=== PATIENT | female | born 1935 | race Caucasian/White ===

== ENCOUNTER 2018-05-08 09:31 | Emergency (ER) | payer BC, MEDICARE ==
[~2018-05-08] VITALS: Ht 152.4 cm; Wt 65.8 kg
[2018-05-08] MEDS ORDERED: SYNTHROID88 MCG PO (09:52)
[2018-05-08] MEDS ORDERED: DILTIAZEM 24HR300 M3 PO (09:52)
[2018-05-08] MEDS ORDERED: ACCUNEB SO1.25 MG/1 INH (09:53)
[2018-05-08] MEDS ORDERED: ALLEGRA ALLERG180 MG PO (09:53)
[2018-05-08] MEDS ORDERED: ASPIR 8181 MG PO (09:53)
[2018-05-08] MEDS ORDERED: FLONASE 0.05%50 MCG NASAL (09:53)
[2018-05-08] MEDS ORDERED: COLESTID1 GM PO (09:54)
[2018-05-08] MEDS ORDERED: ZYRTEC10 M5 PO (09:54)
[2018-05-08] MEDS ORDERED: NORCO 5-325 TA1 EACH PO (10:11)
[2018-05-08] MEDS ORDERED: FLEXERIL PO (10:11)
[2018-05-08 10:30] VITALS: BP 123/49
== END 2018-05-08 10:30 | disposition home or self-care (01) ==
LOC: M.ERS 09:31
DX: M54.5 Low back pain (principal); I10 Essential (primary) hypertension; J45.909 Unspecified asthma, uncomplicated; E89.0 Postprocedural hypothyroidism; Z91.041 Radiographic dye allergy status; Z88.1 Allergy status to other antibiotic agents; Z88.0 Allergy status to penicillin; Z88.2 Allergy status to sulfonamides; Z88.8 Allergy status to other drugs, medicaments and biological substances

== ENCOUNTER 2018-11-13 06:46 | Emergency (ER) | payer BC, MEDICARE ==
[~2018-11-13] VITALS: Ht 154.9 cm; Wt 50.8 kg
[~2018-11-13 06:46] MED LIST: ACCUNEB SO1.25 MG/1 INH; ALLEGRA ALLERG180 MG PO; ASPIR 8181 MG PO; COLESTID1 GM PO; DILTIAZEM 24HR300 M3 PO; FLEXERIL PO; FLONASE 0.05%50 MCG NASAL; NORCO 5-325 TA1 EACH PO; SYNTHROID88 MCG PO; ZYRTEC10 M5 PO
[2018-11-13] MEDS ORDERED: PEPSIN 3,000 DIG1 GM MC (07:12)
[2018-11-13 07:26] LABS: ABSOLUTE LYMPHOCYTES 1.1 thou/uL (0.8-5.3); ABSOLUTE MONOCYTES 0.3 thou/uL (0.0-1.2); ABSOLUTE NEUTROPHILS 3.5 thou/uL (1.6-8.1); BASOPHILS 0.9 %; EOSINOPHILS 0.5 %; HEMATOCRIT 34.5 % (37.0-47.0); HEMOGLOBIN 11.6 gm/dL (12.0-15.0); LYMPHOCYTES 22.4 %; MCH 29.5 pg (26.0-34.0); MCHC 33.6 g/dL (28.0-37.0); MCV 87.9 fL (80.0-100.0); MONOCYTES 6.4 %; MPV 6.8 fl. (7.2-11.1); NUCLEATED RBCS 0 /100WBC; PLATELET COUNT* 212 thou/uL (150-400); POLYS 69.8 %; RBC 3.92 mil/uL (4.20-5.00); RDW-CV 12.4 % (10.5-14.5)
[2018-11-13 07:45] LABS: APTT 25.3 Seconds (25.0-31.3); PROTIME 10.5 Seconds (9.20-11.50)
[2018-11-13 07:55] LABS: ANION GAP 6 mmol/L (7-16); BUN 15 mg/dL (7-18); CALCIUM 9.6 mg/dL (8.5-10.1); CHLORIDE 105 mmol/L (98-107); CO2 31 mmol/L (21-32); CREATININE 0.8 mg/dL (0.6-1.3); GLUCOSE 99 mg/dL (70-99); POTASSIUM 3.8 mmol/L (3.5-5.1); SODIUM 142 mmol/L (136-145); TROPONIN-I LEVEL <0.06 ng/mL (<0.06)
[2018-11-13 07:57] LABS: ALBUMIN 3.8 g/dL (3.4-5.0); ALKALINE PHOSPHATASE 94 U/L (46-116); NT-PRO BRAIN NAT PEPTIDE 56 pg/mL (<300); SGOT 18 U/L (15-37); SGPT 22 U/L (30-65); TOTAL BILIRUBIN 0.3 mg/dL (<0.1-1.0); TOTAL PROTEIN 7.8 g/dL (6.4-8.2)
[2018-11-13 08:25] LABS: URINE BILIRUBIN NEGATIVE (Negative); URINE BLOOD NEGATIVE (Negative); URINE CLARITY CLEAR; URINE COLOR YELLOW; URINE GLUCOSE-RANDOM NEGATIVE (Negative); URINE KETONES NEGATIVE (Negative); URINE LEUKOCYTES-REFLEX NEGATIVE (Negative); URINE NITRITE-REFLEX NEGATIVE (Negative); URINE PROTEIN NEGATIVE (Negative); URINE SPECIFIC GRAVITY 1.025 (1.005-1.030); URINE UROBILINOGEN 0.2 E.U./dl (0.2-1.0)
[2018-11-13] MEDS ORDERED: HYDROCODONE-AP1 EAC6 PO (08:56)
[2018-11-13 09:17] VITALS: BP 149/53
--- NOTE | 2018-11-13 12:02 | EKG ---
[place] [address] ELECTROCARDIOGRAM REPORT Name: ТАТЬЯНА LEY Misa Room: [facility]#: [id number] Admission: 11/13/18 Attend Phys: Discharge: 11/13/18 Date of : 39 Report #: [id number] THIS REPORT FOR: //name// [facility] ED Test Date: 2018-11-13 Test Time: 07:27:08 Pat Name: ТАТЬЯНА LEY Department: Room: Gender: F Claims Auditor: THERESE : 1935 Requested By: Lizandro Dale Order Number: [id number] MD: Henry Louis Measurements Intervals [place] Rate: 71 P: -33 [place]: 172 QRS: -32 QRSD: 96 T: 20 QT: 383 QTc: 417 Interpretive Statements Sinus rhythm Left ventricular hypertrophy Compared to ECG 03/15/2009 09:13:46 Left ventricular hypertrophy now present Electronically Signed On 11-13-2018 12:02:10 [employer] SAL[employer]PRESENTATIVE by Henry Louis [email or web address] <ELECTRONICALLY SIGNED> By: Henry Louis MD, [facility] 11/13/18 1202 6 6 Henry Louis MD, FAC /EPI
== END 2018-11-13 09:18 | disposition home or self-care (01) ==
LOC: M.ERS 06:46
PROVIDERS: Emergency Medicine Emergency Medical Services
DX: S46.092A Other injury of muscle(s) and tendon(s) of the rotator cuff of left shoulder, initial encounter (principal); I10 Essential (primary) hypertension; J45.909 Unspecified asthma, uncomplicated; Z88.8 Allergy status to other drugs, medicaments and biological substances; Z88.1 Allergy status to other antibiotic agents; Z88.0 Allergy status to penicillin; Z88.2 Allergy status to sulfonamides; Z90.89 Acquired absence of other organs; Z90.49 Acquired absence of other specified parts of digestive tract; X58.XXXA Exposure to other specified factors, initial encounter; Y92.89 Other specified places as the place of occurrence of the external cause; Y93.89 Activity, other specified; Y99.8 Other external cause status

== ENCOUNTER → 2020-07-19 | Outpatient (CLI) | payer BC, MEDICARE ==
[~2020-07-19] MED LIST changes: +HYDROCODONE-AP1 EAC6 PO; +PEPSIN 3,000 DIG1 GM MC
== END ==
LOC: M.RAD 13:46
PROVIDERS: ATTEND Internal Medicine
DX: Z12.31 Encounter for screening mammogram for malignant neoplasm of breast (principal)

== ENCOUNTER → 2021-04-17 | Outpatient (CLI) | payer MEDICARE | LOC: M.CT 12:20 | PROVIDERS: ATTEND Internal Medicine | DX: K57.92 Diverticulitis of intestine, part unspecified, without perforation or abscess without bleeding (principal); N28.1 Cyst of kidney, acquired; N94.89 Other specified conditions associated with female genital organs and menstrual cycle; K83.8 Other specified diseases of biliary tract; K80.50 Calculus of bile duct without cholangitis or cholecystitis without obstruction ==